=== PATIENT | female | born 1945 | race Caucasian/White ===

== ENCOUNTER 2018-09-24 10:58 | Outpatient (CLI) | payer MEDICARE ==
--- NOTE | 2018-09-26 14:44 | XRAY Report ---
Reason: PAIN IN LEFT AND RIGHT KNEE Procedure Date: 09/24/2018 Accession Number: [id number] / [id number] Procedure: XRS - Knee 3 View BILAT CPT Code: FULL RESULT: EXAMS: 1. Right Knee Radiography 2. Left Knee Radiography EXAM DATE:09/24/2018 11:19 AM. CLINICAL HISTORY:PAIN IN LEFT AND RIGHT KNEE. COMPARISON: None. TECHNIQUE: 3 views each. FINDINGS: Right Knee: Bones: Normal. No fractures or bone lesions. Joints: Mild joint space narrowing in the weightbearing compartments. Trace effusion. No subluxations. Soft Tissues: Normal. No soft tissue swelling. Left Knee: Bones: Normal. No fractures or bone lesions. Joints: Mild joint space narrowing in the weightbearing compartments. Trace effusion. No subluxations. Soft Tissues: Normal. No soft tissue swelling. IMPRESSION: Trace effusions with relatively mild degenerative changes. RADIA
== END 2018-09-24 10:59 | disposition home or self-care (01) ==
LOC: DI.S 10:58
PROVIDERS: ATTEND Physician Assistant
DX: M25.561 Pain in right knee (principal); M25.562 Pain in left knee; M25.461 Effusion, right knee; M25.462 Effusion, left knee

== ENCOUNTER 2018-12-03 10:11 | Outpatient (CLI) | payer MEDICARE ==
--- NOTE | 2018-12-03 11:13 | DEXA Report ---
Reason: ASYMPTOMATIC MENOPAUSAL STATE Procedure Date: 12/03/2018 Accession Number: [id number] / [id number] Procedure: DEX - Dexa Spine and/or Hip CPT Code: FULL RESULT: EXAM: Dexa Spine and/or Hip DATE: 12/03/2018 10:34 AM CLINICAL HISTORY: ASYMPTOMATIC MENOPAUSAL STATE TECHNIQUE: Dual energy x-ray absorptiometry (DXA) was performed on a [employer] System. Regions measured are the AP Spine, femoral neck, and if needed forearm. COMPARISON: None. In accordance with the International Society for Clinical Densitometry (ISCD) guidelines, data from previous exams may be reanalyzed using current recommendations and techniques. This is done to allow a more accurate basis for comparison with the current study. FINDINGS: The data for the lumbar spine is as follows: BMD (g/cm/cm) T-SCORE Z-SCORE REGION L1 0.917 -1.8 -0.9 L2 0.868 -2.8 -1.9 L3 1.026 -1.5 -0.6 L4 1.199 0.0 0.9 TOTAL 1.008 -1.4 -0.6 NOTE: All evaluable vertebrae are used for classification The data for the hip is as follows: BMD (g/cm/cm) T-SCORE Z-SCORE REGION Neck 1.009 -0.2 1.2 TOTAL 1.101 0.7 1.9 NOTE: The femoral neck or total proximal femur, whichever is lowest, is used for classification. IMPRESSION: THE WHO CLASSIFICATION BASED ON THE INTERNATIONAL REFERENCE STANDARD IS OSTEOPENIA. THE FRACTURE RISK IS INCREASED. RECOMMENDATION: Patients with diagnosis of osteoporosis or osteopenia should have regular bone mineral density assessment. For those eligible for Medicare, routine testing is allowed once every 2 years. Testing frequency can be increased for patients who have rapidly progressing disease or for those who are receiving medical therapy to restore bone mass. COMMENT: World Health Organization (WHO) definitions for osteoporosis and osteopenia: NORMAL BMD: T-score at -1.0 or higher, fracture risk is low OSTEOPENIA BMD: T-score between -1.0 and -2.5, fracture risk is increased. OSTEOPOROSIS BMD: T-score at -2.5 or lower, fracture risk is high. National Osteoporosis Foundation recommends: 1. Obtain adequate dietary calcium (at least 1200 mg per day) and vitamin D (400-800 international units per day). 2. Participate, as appropriate, in regular weightbearing and muscle-strengthening exercise. 3. Avoid tobacco use and reduce alcohol and caffeine intake. 4. For more detailed information see the website at www.NOF.org.
== END 2018-12-03 10:12 | disposition home or self-care (01) ==
LOC: DI 10:11
PROVIDERS: ATTEND Physician Assistant
DX: M85.89 Other specified disorders of bone density and structure, multiple sites (principal); Z78.0 Asymptomatic menopausal state
CPT/HCPCS: 77080

== ENCOUNTER 2018-12-03 10:11 | Outpatient (CLI) | payer MEDICARE ==
--- NOTE | 2018-12-03 16:40 | Mammography Report ---
Reason: SCREENING MAMMO Procedure Date: 12/03/2018 Accession Number: [id number] / [id number] Procedure: DIETER - Screening Mammo w/Ector CPT Code: FULL RESULT: EXAM: Screening Mammo w/Ector DATE: 12/03/2018 10:51 AM CLINICAL HISTORY: Screening TECHNIQUE: (B) - Bilateral CC and MLO views were obtained. COMPARISON: 03/11/2013 PARENCHYMAL PATTERN: (A) - The breasts demonstrate scattered fibroglandular densities bilaterally. FINDINGS: There has been interval development of a small round benign appearing mass in the upper outer quadrant left breast, posterior one third that may represent an intramammary lymph node; the mass is seen on both 2-D and 3-D. Otherwise, no suspicious finding in either breast. IMPRESSION: Incomplete examination. BI-RADS category 0. Left breast. RECOMMENDATION: (ADDUS) - Targeted ultrasound recommended. Left breast. BI-RADS CATEGORY: (0) - Incomplete Examination - need additional evaluation. STANDARD QUALIFYING STATEMENTS: 1. This examination was not reviewed with the aid of Computer-Aided Detection (CAD). 2. A negative or benign imaging report should not preclude biopsy if clinically suspicious findings are present. 3. Dense breasts may obscure an underlying neoplasm. 4. This examination was reviewed with the aid of 3D breast imaging (tomosynthesis).
== END 2018-12-03 10:12 | disposition home or self-care (01) ==
LOC: DI 10:11
PROVIDERS: ATTEND Physician Assistant
DX: Z12.31 Encounter for screening mammogram for malignant neoplasm of breast (principal)
CPT/HCPCS: 77063; 77067

== ENCOUNTER 2018-12-08 12:29 | Outpatient (CLI) | payer MEDICARE ==
--- NOTE | 2018-12-08 13:21 | Ultrasound Report ---
Reason: ABNORMAL MAMMOGRAM Procedure Date: 12/08/2018 Accession Number: [id number] / [id number] Procedure: US - Breast Unilateral Limited CPT Code: FULL RESULT: EXAM: Breast Unilateral Limited DATE: 12/08/2018 1:07 PM CLINICAL HISTORY: Finding recalled from screening left breast. TECHNIQUE: (L) - Left targeted real-time ultrasound. Braid Folder images obtained. COMPARISON: 12/03/2018 through 05/24/2008 FINDINGS: Targeted ultrasound is performed of the lateral left breast posterior depth for small oval mass recalled from screening. At 3:00 10 cm from nipple, there is an anechoic 5 mm simple cyst corresponding to the mammographic finding. IMPRESSION: Benign findings. BI-RADS category 2. Mammographic finding recalled from screening corresponds to a simple cyst. RECOMMENDATION: (ANNUAL) - Recommend routine annual screening mammography. BI-RADS CATEGORY: (2) - Benign Findings.
== END 2018-12-08 12:30 | disposition home or self-care (01) ==
LOC: DI 12:29
PROVIDERS: ATTEND Family Medicine
DX: N60.02 Solitary cyst of left breast (principal)
CPT/HCPCS: 76642

== ENCOUNTER 2019-08-12 14:30 | Outpatient (CLI) | payer MEDICARE ==
--- NOTE | 2019-08-13 10:17 | Ultrasound Report ---
Reason: ABN CT, RT ADNEXAL LESION Procedure Date: 08/12/2019 Accession Number: [id number] / [id number] Procedure: US - Pelvic w/Transvaginal CPT Code: Final Report FULL RESULT: PROCEDURE: Pelvic w/Transvaginal INDICATIONS: ABN CT, RT ADNEXAL LESION TECHNIQUE: Real-time scanning was performed of the pelvic organs, with image documentation. Additional endovaginal scanning was necessary due to incomplete visualization of the adnexal and endometrial structures by transabdominal scanning. COMPARISON: None available. Outside CT from [facility] was not available at this time.. FINDINGS: Transabdominal scanning: Limited scanning through the kidneys shows no hydronephrosis. No pathologic free abdominal or pelvic fluid. Endovaginal scanning: Uterus: Uterus is normal in size at 7.5 x 4.5 x 3.1 cm. No uterine mass. The endometrium measures 5.1 mm in combined thickness. Ovaries: Right ovary measures approximately 5.4 x 3.8 x 3.5 cm. Solid and cystic right ovarian mass. The solid component measures 2 x 2 x 2 cm and is homogeneous in echotexture. Blood flow is present. Cystic component measures 3.1 x 2.3 x 2.2 cm. Cystic component is anechoic with posterior acoustic enhancement. No septation identified. Left ovary has been surgically removed. IMPRESSION: 1. Right ovarian solid and cystic mass. The solid component measures 2 cm and the cystic component measures 3.1 cm. Primary diagnostic considerations include cystadenoma versus cystadenocarcinoma versus endometrioma. -Recommend comparison with outside CT when available. -Recommend dedicated pelvic MRI with IV contrast for further characterization. -Surgical/gynecological consultation is recommended. 2. Endometrial thickness measures 5 mm and is at the upper limits of normal in this postmenopausal patient. The patient denies bleeding per report. 3. Prior left oophorectomy. Reviewed by: Grady Carbone MD on 08/13/2019 10:15 AM PDT Approved by: Grady Carbone MD on 08/13/2019 10:15 AM PDT Station ID: [id number]
== END 2019-08-12 14:31 | disposition home or self-care (01) ==
LOC: DI 14:30
PROVIDERS: ATTEND Nurse Practitioner Family
DX: N83.8 Other noninflammatory disorders of ovary, fallopian tube and broad ligament (principal)
CPT/HCPCS: 76830; 76856

== ENCOUNTER 2019-09-11 12:12 | Outpatient (CLI) | payer MEDICARE ==
[2019-09-11 12:23] LABS: ALBUMIN 4.1 g/dL (3.2-5.5); BILIRUBIN,TOTAL 0.3 mg/dL (0.2-1.0); CALCIUM 9.1 mg/dL (8.5-10.3); CREATININE 0.8 mg/dL (0.4-1.0); TOTAL PROTEIN 6.2 g/dL (6.7-8.2)
[2019-09-11] MEDS ORDERED: GADOBUTROL 10 MMOL/10 ML VIAL IVP ONE (13:43)
--- NOTE | 2019-09-11 15:22 | MRI Report ---
PROCEDURE: Pelvis W/WO INDICATIONS: OVARIAN CYST CONTRAST: IV CONTRAST: Gadavist ml: 8 TECHNIQUE: Coronal ultra fast SE, sagittal breath-hold T2 FSE; axial T1 FSE with and without fat saturation thro ugh the pelvis. Optional long- and short-axis uterine nonbreath-hold T2 FSE through the uterus. Sag ittal or axial dynamic ultra fast GE during administration of contrast. Post-contrast axial or coron al ultra fast GE / 2-D spoiled GE with fat saturation from the iliac crests to the symphysis. Option al diffusion weighted imaging and ADC may be performed. COMPARISON: Prior pelvic ultrasound from 08/12/2019 reviewed and also prior CT scanning 04/02/2019.. FINDINGS: Image quality: Excellent. Uterus: Uterus is normal in size for age in this 74-year-old female. Adnexa: The left ovary is not clearly identified as a discrete structure adjacent to the broad ligame nt but the left adnexa appears normal, without suspicious cystic or solid lesions. In contrast the r ight adnexa again demonstrates a combined cystic and solid mass lesion with the solid component measu ring up to 3.3 x 2.4 cm. The overall morphology of this mass includes multi septated small cysts at i ts medial border, and larger cysts above and below the solid component. The mass is complex. It has n ot definitely enlarged in size from the comparison CT scan in March of this year. It is better seen by MR scanning for internal detail. The overall craniocaudad length of this structure is 5.6 cm in t he transverse dimension is 4.3 cm. Maximal AP dimension is 3.2 cm. The post contrast imaging shows mi ld enhancement of the solid nodular component and also of the cystic margins Urinary system: Bladder wall is normal in thickness. Distal ureters are non distended. Urethra severino ears normal in morphology. Nodes and vessels: No pelvic or inguinal adenopathy by size criteria. Iliac vessels are normal in s ize. Bowel and peritoneum: No pathologic free pelvic fluid. Inferior colon and small bowel loops are nor mal in caliber. Note is again made of diverticulosis but without acute diverticulitis at this time. Soft tissues: No inguinal hernias. No findings of pelvic floor incompetence in the absence of provo cation. Bones: Marrow demonstrates normal overall signal. IMPRESSION: A complex cystic and solid mass is present at the right adnexa, presumably ovarian in or igin, with maximal dimensions of the structure measuring up to 5.6 x 4.3 x 3.2 cm. The solid componen t shows mild enhancement as do the cyst damon. No definite interval enlargement has occurred with ref erence to the prior CT scanning from 04/02/2019. No metastatic disease is found. The size and complexi ty of the mass raises concern for presence of low-grade neoplasm as the underlying cause. Normal-appearing uterus and left adnexa. Moderate diverticulosis involving the sigmoid colon, no acut e diverticulitis at this time. Reviewed by: Jose Antonio Guerrero MD on 09/11/2019 3:21 PM PDT Approved by: Jose Antonio Guerrero MD on 09/11/2019 3:21 PM PDT Station ID: [id number]
== END 2019-09-11 12:13 | disposition home or self-care (01) ==
LOC: LAB 12:12
PROVIDERS: ATTEND Nurse Practitioner Family
DX: N83.209 Unspecified ovarian cyst, unspecified side (principal); N83.292 Other ovarian cyst, left side
CPT/HCPCS: 36415; 72197; 80053; 86304; A9585

== ENCOUNTER 2019-11-06 12:47 | Outpatient (CLI) | payer MEDICARE | END 2019-11-06 12:48 | disposition home or self-care (01) | LOC: RT 12:47 | PROVIDERS: ATTEND Obstetrics & Gynecology Gynecologic Oncology | DX: Z01.810 Encounter for preprocedural cardiovascular examination (principal) | CPT/HCPCS: 93005 ==

== ENCOUNTER 2023-08-30 07:00 | Outpatient (CLI) | payer MEDICARE ==
--- NOTE | 2023-08-31 03:25 | XRAY Report ---
PROCEDURE: Chest 2V INDICATIONS: COVID+ TECHNIQUE: 2 views of the chest were obtained. COMPARISON: None. FINDINGS: Surgical changes and devices: None. Lungs and pleura: No pleural effusions or pneumothorax. Lungs are clear. Mediastinum: Mediastinal contours appear normal. Heart size is normal. Bones and chest wall: No suspicious bony lesions. Overlying soft tissues appear unremarkable. IMPRESSION: Normal two-view chest x-ray Reviewed by: Du Kenny MD on 08/31/2023 2:23 AM [email or web address] Approved by: Du Kenny MD on 08/31/2023 2:23 AM [email or web address] Station ID: [id number]
== END 2023-08-30 23:59 | disposition home or self-care (01) ==
LOC: DI.S 07:00
PROVIDERS: ATTEND Emergency Medicine
DX: U07.1 COVID-19 (principal)